=== PATIENT | female | born 1970 | race Two or more races ===

== ENCOUNTER 2016-11-19 09:28 | Emergency (ER) | payer MEDICAID ==
[~2016-11-19 09:28] MED LIST: ARIP20TA5; CAR3125T PO; FLUO20CA19 PO; Insulin Detemir SC; LINE600T PO; LIS20T PO; METFORMIN HYDROCHLORIDE PO; MUPI2OIN10 TOP; POTA-167 PO; TRAZ100T2
[2016-11-19 10:03] LABS: Basophils # (auto) 0 uL; Basophils % (auto) 0.3 % (0.0-2.0); Eosinophils # (auto) 0.1 uL; Eosinophils % (auto) 1.5 % (0.0-7.0); Hemoglobin 16.6 g/dL (12.2-16.2); Lymphocytes # (auto) 2.6 uL; Lymphocytes % (auto) 32.6 % (10.0-50.0); Mean Corpuscular Hgb Conc. 33.2 g/dL (32.0-36.0); Mean Corpuscular Volume 90.6 fL (80.0-100.0); Mean Platelet Volume 9.6 fL (7.4-10.4); Monocytes # (auto) 0.7 uL; Monocytes % (auto) 8.2 % (0.0-12.0); Neutrophils # (auto) 4.6 uL; Neutrophils % (auto) 57.4 % (37.0-80.0); Platelet Count (auto) 224 10^3/uL (140-450); Red Cell Distribution Width 14.1 % (11.6-16.0); SUSPECT VIEW TRANSMISSION
[2016-11-19 10:21] LABS: Albumin 3.5 g/dL (3.4-5.0); BUN/Creatinine Ratio 12.5; Calcium 9.4 mg/dL (8.5-10.1); Potassium 3.7 mmol/L (3.5-5.1)
[2016-11-19 10:30] LABS: Bilirubin, Total 0.5 mg/dL (0.2-1.0); Total Protein 7.2 g/dL (6.4-8.2)
[2016-11-19 10:32] LABS: Salicylate 2.8 mg/dL (2.8-20.0)
[2016-11-19 10:35] LABS: Acetaminophen < 2.0 ug/mL (10-30)
[2016-11-19 12:17] LABS: Urine Bilirubin Negative (Negative); Urine Blood Negative /uL (Negative); Urine Color Yellow (Yellow); Urine Glucose Normal (Normal); Urine Ketone Negative (Negative); Urine Mucus FEW (None Seen); Urine Nitrite Negative (Negative); Urine RBC 1 /hpf (0 - 4); Urine Squamous Epithelial Cell FEW /hpf (<5); Urine Urobilinogen Normal (Negative)
[2016-11-19 15:27] VITALS: BP 140/82
== END 2016-11-19 15:38 | disposition short-term general hospital (02) ==
LOC: EDBD 09:28 → ER 09:28
DX: F32.9 Major depressive disorder, single episode, unspecified (principal); F41.9 Anxiety disorder, unspecified; J45.909 Unspecified asthma, uncomplicated; J44.9 Chronic obstructive pulmonary disease, unspecified; E11.9 Type 2 diabetes mellitus without complications; I10 Essential (primary) hypertension; F17.210 Nicotine dependence, cigarettes, uncomplicated; Z87.442 Personal history of urinary calculi
CPT/HCPCS: 36415; 80053; 80307; 80320; 80329; 81001; 85025; 94761